=== PATIENT | male | born 1995 | race Caucasian/White ===

== ENCOUNTER → 2017-09-12 | Outpatient (CLI) | payer OTHER | LOC: M CLY 09:02 | DX: M25.561 Pain in right knee (principal) ==

== ENCOUNTER → 2018-10-05 | Outpatient (CLI) | payer OTHER ==
--- NOTE | 2018-10-05 15:10 | REP ---
LEFT ANKLE, FOUR VIEWS: HISTORY: Pain. There is no acute fracture or dislocation. The joint space is normal in appearance. An ossified density is present inferior to the medial malleolus. This represents ligamentous or tendon calcification. IMPRESSION: There is no acute fracture or dislocation. Electronically Signed by Abdiaziz Cash MD 10/05/2018 03:12 P
== END ==
LOC: M WUC 14:27
PROVIDERS: ATTEND Physician Assistant
DX: M25.572 Pain in left ankle and joints of left foot (principal)

== ENCOUNTER → 2019-07-13 | Outpatient (CLI) | payer OTHER ==
--- NOTE | 2019-07-13 16:54 | REP ---
Left wrist: Four views. History: Contusion of the left wrist. Findings: Four views of the left wrist show mild dorsal soft tissue swelling. Bones joints and soft tissues are otherwise unremarkable. No fractures seen. Impression: No fracture noted. Electronically Signed by Cameron Solomon MD 07/13/2019 04:45 P
== END ==
LOC: M WUC 12:12
PROVIDERS: ATTEND Physician Assistant
DX: S60.212A Contusion of left wrist, initial encounter (principal); X58.XXXA Exposure to other specified factors, initial encounter; Y92.9 Unspecified place or not applicable

== ENCOUNTER → 2024-10-28 | Outpatient (CLI) | payer OTHER | LOC: M WUC 11:14 | PROVIDERS: ATTEND Student in an Organized Health Care Education/Training Program | DX: M70.42 Prepatellar bursitis, left knee (principal) ==